=== PATIENT | male | born 1970 | race Caucasian/White ===

== ENCOUNTER 2017-09-08 15:37 | Emergency (ER) | payer OTHER ==
[~2017-09-08] VITALS: Ht 175.3 cm; Wt 96.2 kg
[~2017-09-08 15:37] MED LIST: CLONAZEPAM0.5 M2 PO
[2017-09-08 15:40] VITALS: BP 141/102
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
--- NOTE | 2017-09-08 17:30 | RADIOLOGY REPORT ---
EXAMINATION: XR HIP, RIGHT X-RAY LEFT KNEE CLINICAL INFORMATION: Evaluate for fracture COMPARISON: None TECHNIQUE: Two views of the right hip. 5 views of the left knee FINDINGS: RIGHT HIP Status post right hip arthroplasty. Intact hardware. Prosthesis is well seated. No suspicious periprosthetic abnormal lucency. Heterotopic ossification noted adjacent to the prosthetic right hip. No acute osseous abnormality. LEFT KNEE Normal bony mineralization. No evidence of acute fracture or dislocation. Joint spaces preserved. No gross joint effusion. Corticated appearing ossific densities adjacent to the tibial tuberosity compatible with probable chronic [place] Schlatter disease. Thickening of the overlying patellar tendon. No acute osseous modality. IMPRESSION: 1. Status post right hip arthroplasty. No acute osseous modality right hip. 2. 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 Thickening of the patellar tendon likely represents chronic change.
== END 2017-09-08 18:14 | disposition left against medical advice (07) ==
LOC: ERH 15:37
DX: M25.551 Pain in right hip (principal); M25.562 Pain in left knee; R00.0 Tachycardia, unspecified
CPT/HCPCS: 73502-RT; 73562-LT; 93005; 93010